=== PATIENT | male | born 1995 | race African-American/Black ===

== ENCOUNTER 2018-07-03 20:36 | Emergency (ER) | payer SELFPAY ==
[~2018-07-03] VITALS: Ht 182.9 cm; Wt 76.6 kg
[~2018-07-03 20:36] MED LIST: IBUPROFEN 200MG TABLET ONE
[2018-07-03] MEDS ORDERED: MORPHINE SULFATE 4 MG/ML CPJ (NOT FOR IM USE) IV STA (22:24)
[2018-07-03] MEDS ORDERED: SODIUM CHLORIDE 0.9% 1,000 ML IV ONE (22:24)
[2018-07-03] MEDS ORDERED: ONDANSETRON HCL 4MG/2ML VIAL IV STA (22:24)
[2018-07-03] MEDS ORDERED: ACETAMINOPHEN 325MG TABLET PO STA (22:24)
[2018-07-03 22:40] LABS: CLARITY URINE CLOUDY (CLEAR); COLOR URINE YELLOW (YELLOW); KETONES URINE NEGATIVE (NEGATIVE); LEUKOCYTE ESTERASE URINE NEGATIVE (NEGATIVE); NITRITE URINE NEGATIVE (NEGATIVE); OCCULT BLOOD URINE NEGATIVE (NEGATIVE); PROTEIN URINE NEGATIVE (NEGATIVE); SPECIFIC GRAVITY URINE 1.014 (1.005-1.030); UROBILINOGEN URINE 0.2 E.U./dL (0.2-1.0)
[2018-07-03 23:22] LABS: CHLORIDE 102 mEq/L (98-107)
[2018-07-03 23:23] LABS: BASOPHILS % 0.3 % (0.0-2.0); EOSINOPHILS % 0.9 % (0.0-5.0); HEMATOCRIT. 40.6 % (42.0-52.0); LYMPHOCYTES % 16.7 % (20.0-50.0); MEAN CORPUSCULAR HEMOGLOBIN 27.9 pg (28.0-32.0); MEAN CORPUSCULAR VOLUME 81.1 fL (80.0-94.0); MEAN PLATELET VOLUME 9.2 fl (7.4-10.4); MONOCYTES % 9.4 % (2.0-8.0); NEUTROPHILS % 72.7 % (40.0-76.0); PLATELET 181 x1000/uL (130-400)
[2018-07-03 23:25] LABS: PROTHROMBIN TIME 10.4 sec (9.1-11.1)
[2018-07-04] MEDS ORDERED: IOHEXOL-300 100 ML BOTTLE ONE (01:27)
[2018-07-04 01:49] VITALS: BP 127/53
== END 2018-07-04 02:10 | disposition home or self-care (01) ==
LOC: ER 20:36
DX: R10.9 Unspecified abdominal pain (principal); R50.9 Fever, unspecified; R11.2 Nausea with vomiting, unspecified; F17.200 Nicotine dependence, unspecified, uncomplicated; J02.9 Acute pharyngitis, unspecified
CPT/HCPCS: 36415; 74177; 80053; 81003; 83690; 85025; 85610; 96361; 96374; 96375; 99285; J2270; J2405; J7030; Q9967; Z7610

== ENCOUNTER 2025-08-02 07:48 | Emergency (ER) | payer OTHER ==
[~2025-08-02] VITALS: Ht 188 cm; Wt 91.0 kg
[2025-08-02 07:52] VITALS: O2SAT 96
[2025-08-02] MEDS ORDERED: TOPUD PO (08:17)
[2025-08-02] MEDS ORDERED: IBUP-2028 MT (08:17)
[2025-08-02] MEDS ORDERED: LIDO-53 TP (08:17)
[2025-08-02] MEDS ORDERED: METH-653 MT (08:17)
[2025-08-02 08:48] VITALS: BP 137/101; PULSE 88; RESP 19; TEMP 36.7; O2SAT 98
== END 2025-08-02 08:50 | disposition home or self-care (01) ==
LOC: ER 07:48
DX: S39.012A Strain of muscle, fascia and tendon of lower back, initial encounter (principal); S13.4XXA Sprain of ligaments of cervical spine, initial encounter; V89.2XXA Person injured in unspecified motor-vehicle accident, traffic, initial encounter; Y92.410 Unspecified street and highway as the place of occurrence of the external cause; Y93.89 Activity, other specified; Y92.89 Other specified places as the place of occurrence of the external cause; Y99.8 Other external cause status
CPT/HCPCS: 99283

== ENCOUNTER 2025-08-03 22:19 | Emergency (ER) | payer OTHER ==
[~2025-08-03] VITALS: Ht 185.4 cm; Wt 91.0 kg
[~2025-08-03 22:19] MED LIST changes: +IBUP-2028 MT; -IBUPROFEN 200MG TABLET ONE; +LIDO-53 TP; +METH-653 MT; +TOPUD PO
[2025-08-03 22:33] VITALS: O2SAT 97
[2025-08-04 00:01] LABS: BASOPHILS % 1.2 % (0.0-2.0); EOSINOPHILS % 1.5 % (0.0-5.0); HEMATOCRIT. 44.7 % (42.0-52.0); HEMOGLOBIN. 15.0 g/dL (14.0-18.0); LYMPHOCYTES % 33.5 % (20.0-50.0); MEAN PLATELET VOLUME 8.9 fl (7.4-10.4); MONOCYTES % 6.4 % (2.0-8.0); NEUTROPHILS % 57.4 % (40.0-76.0); PLATELET 196 x1000/uL (130-400); RED BLOOD CELL COUNT 5.51 mill/uL (4.7-6.1); RED CELL DISTRIBUTION WIDTH 12.9 % (11.6-14.6)
[2025-08-04] MEDS: ONDANSETRON 4MG ODT PO ONE (00:10)
[2025-08-04 00:12] LABS: INR 1.0
[2025-08-04] MEDS: HYDROCODONE/ACETAMINOPHEN 5/325MG TABLET PO ONE (00:12)
[2025-08-04 00:13] LABS: CREATININE 1.2 mg/dL (0.6-1.3); UREA NITROGEN BLOOD 7 mg/dL (9-23)
[2025-08-04 00:14] LABS: ETHANOL BLOOD 186 mg/dL (<10)
[2025-08-04] MEDS: FLUORESCEIN SODIUM 1MG/STRIP RIGHTEYE STA (01:21)
[2025-08-04] MEDS: TETRACAINE 0.5% OPHTH DROPS 4ML BOTHEYE STA (01:21)
[2025-08-04 02:05] VITALS: BP 146/90; PULSE 85; RESP 18; TEMP 36.8; O2SAT 98
== END 2025-08-04 02:36 | disposition home or self-care (01) ==
LOC: ER 22:19
DX: H21.01 Hyphema, right eye (principal); Z79.899 Other long term (current) drug therapy; Z98.890 Other specified postprocedural states
CPT/HCPCS: 80048; 80320; 85025; 85610; 36415; 70450; 70486; 99284; Q0162; G0480